=== PATIENT | male | born 1965 | race Caucasian/White ===

== ENCOUNTER 2021-09-21 04:15 | Emergency (ER) | payer OTHER, SELFPAY ==
[2021-09-21] VITALS (18 sets, daily range): BP systolic 140–165; BP diastolic 76–86; PULSE 71–76; RESP 18; TEMP 36.9; O2SAT 97–100
--- NOTE | ~2021-09-21 | CT_ITS ---
EXAMINATION: CT abdomen pelvis wo con DATE: 09/21/2021 05:04 INDICATION: Right flank pain. TECHNIQUE: Computed tomography (CT) of the abdomen and pelvis was performed without intravenous contr ast. Automated exposure control and iterative reconstruction technique were employed. The dose-length product was 1682.48 mGy-cm. COMPARISON: CT abdomen and pelvis 01/04/2013 FINDINGS: The visualized portions of the lung bases are clear without pneumonia or pleural effusion. The heart size is normal. There are coronary artery calcifications. No pericardial effusion. There is diffuse hepatic steatosis. The gallbladder, spleen, pancreas, and adrenal glands are normal. There a re 4 stones in right kidney measuring up to 3 mm. There is mild right hydronephrosis. There is a 7 mm stone in proximal right ureter. There are approximately 7 stones in left kidney measuring up to 6 mm . The prostate is mildly enlarged. There is diverticulosis of the colon without evidence of diverticu litis. The appendix is normal. There are no dilated loops of bowel. There are no pathologically enlar ged lymph nodes. There is no free intraperitoneal fluid. There are bridging endplate osteophytes at m ultiple levels in the spine, consistent with diffuse idiopathic skeletal hyperostosis (DISH). There i s mild chronic anterior wedging of T11-L1 vertebral bodies. IMPRESSION: 1. 7 mm stone in proximal right ureter with mild right hydronephrosis. 2. Bilateral nonobstructing kidney stones. Reviewed, dictated and finalized at location A.
--- NOTE | ~2021-09-21 | XR_ITS ---
EXAMINATION: XR abdomen/kub 1V DATE: 09/21/2021 07:23 INDICATION: Kidney stone. TECHNIQUE: A supine view of the abdomen on 2 radiographs was obtained. COMPARISON: CT abdomen and pelvis 09/21/2021 FINDINGS: There are no dilated loops of bowel. There is a 7 mm stone in proximal right ureter. There are stones in the kidneys. IMPRESSION: 1. 7 mm stone in proximal right ureter. 2. Bilateral kidney stones. Reviewed, dictated and finalized at location A.
--- NOTE | 2021-09-21 04:41 | ED.ABDPAIN ---
HPI - Abdominal Pain General Chief Complaint: Abdominal Pain Stated Complaint: ABD pain, R flank pain Time Seen by Provider: 09/21/21 04:18 History of Present Illness HPI narrative: 56-year-old male presenting to the emergency department for evaluation of right flank pain. Patient states symptoms started approximately 1130 last night. Patient describes right flank pain that is rating around to his lower abdomen. Patient does have associated nausea. Patient does have a prior history of kidney stones and did have a procedure by urology to have the stone removed, patient's urologist was Dr. Maldonado Patient did have a kidney stone approximately 9 years ago and does have history of bladder cancer for which she also was treated by Dr. Maldonado Related Data Allergies Allergy/AdvReac Type Severity Reaction Status Date / Time Penicillins Allergy Mild SWELLING ? Unverified 07/16/08 12:21 Review of Systems Review of Systems: CONSTITUTIONAL: Denies fever, chills, or sweats. EYES: Denies visual changes, redness, or discharge. ENT: Denies rhinorrhea, congestion, sore throat, or otalgia. CARDIOVASCULAR: Denies chest pain, palpitations, or edema. RESPIRATORY: Denies cough or dyspnea. GASTROINTESTINAL: See HPI GENITOURINARY: Right flank pain, denies hematuria SKIN: Denies rash or itching. MUSCULOSKELETAL: Denies back pain, joint pain, or myalgia. NEUROLOGIC: Denies headache, numbness, or weakness. Exam Narrative: APPEARANCE: Well appearing, no pain, no distress, well-nourished. HEAD: normocephalic, atraumatic. EYES: PERRLA/EOMI, conjunctivae clear. NOSE: Normal no drainage NECK: Supple. No adenopathy, no masses. RESPIRATORY: Airway patent, respirations nonlabored. Clear to auscultation bilaterally, no rales, rhonchi, wheezing. CARDIOVASCULAR: Regular rate and rhythm without murmurs rubs or gallops. ABDOMINAL: Soft, nontender, nondistended, normal bowel sounds. Lower abdominal tenderness to palpation. No CVA tenderness to palpation. MUSCULOSKELETAL: Moves all extremities. Strength/ROM intact, No edema, No calf tenderness. NEURO: Alert. Cranial nerves II through XII intact. Grossly intact SKIN: Warm, dry. Normal Color Course Course Emergency Course: Patient's urologist was consulted and he is coming down to see the patient to determine if he is going to send the patient home or if he is going to stent the patient today. Dr. Anderson evaluated the patient in the emergency department and will have outpatient follow-up with the patient to schedule a lithotripsy. Patient was provided Zofran and [place] for pain control. Vital Signs Vital signs: Vital Signs Pulse Oximetry 99 09/21/21 04:22 Temperature 98.4 F 09/21/21 04:23 Pulse Rate 71 09/21/21 06:47 Respiratory Rate 18 09/21/21 04:23 Blood Pressure 146/82 H 09/21/21 06:47 Pulse Oximetry 99 09/21/21 06:47 MDM - Abdominal Pain Lab Data Attestation: I reviewed the patient's lab results. Result diagrams: 09/21/21 05:39 09/21/21 04:52 Labs: Lab Results 09/21/21 09/21/21 09/21/21 Range/Units 04:52 05:39 05:42 WBC 10.4 H (4.5-10.0) K/mm3 RBC 4.78 (4.6-6.20) M/mm3 Hgb 15.2 (14.0-18.0) g/dL Hct 43.0 (42.0-52.0) % MCV 90.0 (80-100) fl MCH 31.8 (26-34) pg MCHC 35.3 (32-36) g/dl RDW 12.1 (11.5-14.5) % Plt Count 119 L (150-375) k/mm3 MPV 11.9 H (7.4-10.4) fl Immature Gran % (Auto) 0.6 H (0-0.5) % Neut % (Auto) 75.9 H (45.5-73.1) % Lymph % (Auto) 14.9 L (18.3-44.2) % Braxton % (Auto) 7.1 (2.6-8.5) % Eos % (Auto) 1.1 (0-4.4) % Baso % (Auto) 0.4 (0.2-1.2) % Lymph # (Auto) 1.55 (0.9-3.2) K/mm3 Braxton # (Auto) 0.7 H (0.1-0.6) K/mm3 Eos # (Auto) 0.1 (0-0.3) K/mm3 Baso # (Auto) 0.0 (0.0-0.1) K/mm3 Abs Immat Gran (auto) 0.06 H (0.00-0.031) K/mm3 Absolute Neuts (auto) 7.9 H (1.3-6.7) K/mm3 Absolute Nucleated RBC 0.0 (0.0-0.012) K/m
[2021-09-21 05:11] LABS: Alanine Aminotransferase 45 U/L (6-50); Albumin Level 4.4 g/dL (3.5-5.1); Alkaline Phosphatase 39 U/L (38-126); Anion Gap 6 mmol/L (8-16); Aspartate Amino Transferase 35 U/L (17-59); Bilirubin,Total 0.4 mg/dL (0.2-1.3); Blood Urea Nitrogen 15 mg/dL (9-20); Calcium 8.6 mg/dL (8.4-10.2); Carbon Dioxide 27 mmol/L (22-30); Chloride 104 mmol/L (98-107); Estimated Glomerular Filt Rate 57; Glucose 162 mg/dL (65-110); Potassium 4.2 mmol/L (3.4-5.0); Sodium 137 mmol/L (137-145)
[2021-09-21] MEDS: ONDANSETRON INJ 4 MG/2 ML VIAL IV PUSH (05:45)
[2021-09-21] MEDS: SODIUM CHLORIDE 0.9% IV 1,000 ML 999 ML IV CONT (05:46)
[2021-09-21] MEDS: HYDROmorphone HCL INJ (*CRX) 1 MG/ML SYR IV PUSH (05:46)
[2021-09-21 05:51] LABS: Basophils Percent Auto 0.4 % (0.2-1.2); Eosinophils Absolute Auto 0.1 K/mm3 (0-0.3); Eosinophils Percent Auto 1.1 % (0-4.4); Hemoglobin 15.2 g/dL (14.0-18.0); Immature Granulocyte Absolute 0.06 K/mm3 (0.00-0.031); Immature Granulocyte Percent A 0.6 % (0-0.5); Immature Platelet Fraction Pct 10.4 % (0.9-11.2); Lymphocytes Absolute Auto 1.55 K/mm3 (0.9-3.2); Lymphocytes Percent Auto 14.9 % (18.3-44.2); Mean Corpuscular HGB Conc 35.3 g/dl (32-36); Mean Corpuscular Hemoglobin 31.8 pg (26-34); Mean Platelet Volume 11.9 fl (7.4-10.4); Monocytes Absolute Auto 0.7 K/mm3 (0.1-0.6); Monocytes Percent Auto 7.1 % (2.6-8.5); Neutrophils Absolute Auto 7.9 K/mm3 (1.3-6.7); Neutrophils Percent Auto 75.9 % (45.5-73.1); Platelet Count Result 119 k/mm3 (150-375); Red Blood Count 4.78 M/mm3 (4.6-6.20); Red Cell Distribution Width 12.1 % (11.5-14.5); White Blood Count 10.4 K/mm3 (4.5-10.0)
[2021-09-21 05:54] LABS: Appearance Urine Clear (Clear); Bilirubin Urine Negative (Negative); Blood Urine 3+ (Negative); Color Urine Yellow (Yellow); Glucose Urine UA 1+ mg/dL (Negative); Ketones Urine Trace mg/dL (Negative); Leukocyte Esterase Ur Negative LEU/UL (Negative); Nitrate Urine Negative (Negative); Protein Urine 2+ mg/dL (Negative); Specific Grav Ur >= 1.030 (1.001-1.035); Urobilinogen Urine 0.2 mg/dL (<2.0); pH Urine 5.5 (5.0-9.0)
[2021-09-21 05:56] LABS: Mucus Urine Rare /lpf
[2021-09-21 05:57] LABS: Add Urine Microscopic? YES
--- NOTE | 2021-09-21 07:21 | WPDURCON ---
Assessment and Plan Assessment and plan (1) Calculi, ureter: Code(s): N20.1 - Calculus of ureter Status: Acute Assessment and Plan: Right ESWL Urology Consult Note HPI Date Seen: 09/21/21 Primary Care Provider: Kathya Cid, [employer] Consult Narrative Narrative: Lorenzo Blackwood is a 56 year old male, well known to me with a history of both urolithiasis and bladder cancer, presents to the ER with acute right flank pain. This is not associated nausea vomiting fevers chills or gross hematuria. Imaging demonstrates an obstructing 6 mm right proximal ureteral calculus. This plan has been the easily controlled. I discussed therapeutic options including ureteral stent placement followed by elective ESWL versus in Situ ESWL without stent placement. He has elected for the latter. He is aware the risk including, not limited to, adverse cardiopulmonary events, perinephric hematoma, febrile urinary tract infections and subsequent need for stent placement or additional urological procedures to clear residual stone fragments. Review of Systems Constitutional: Constitutional: Denies chills, Denies fatigue, Denies fever(s) and Denies headache(s) Eyes: Eyes: Denies blurry vision ENT: Denies vertigo, Denies dizziness, Denies headache(s) and Denies sore throat Cardiovascular: Cardiovascular: Denies chest pain, Denies syncope, Denies lightheadedness, Denies palpitations, Denies dyspnea and Denies dyspnea on exertion Respiratory: Respiratory: Denies hemoptysis, Denies dyspnea and Denies dyspnea on exertion Gastrointestinal: Gastrointestinal: Denies melena, Denies bloating, Denies hematochezia, Denies change in bowel habits, Denies change in stool character, Denies constipation, Denies diarrhea and Denies vomiting Genitourinary: Genitourinary: Denies hematuria, Denies dysuria, Denies testicular pain, Denies urinary frequency, Denies urinary hesitancy and Denies urinary urgency Integumentary/Breasts: Skin/Breast: Denies pruritus, Denies lesions and Denies rash Neurologic: Denies confusion, Denies vertigo, Denies dizziness, Denies syncope and Denies headache(s) Psychiatric: Psychiatric: Denies anxiety, Denies change in appetite and Denies confusion Endocrine: Endocrine: Denies fatigue and Denies palpitations Meds Home Medications and Allergies Home Medications Medication Instructions Recorded Confirmed Type hydrocodone 5 mg-acetaminophen 325 1 tablet PO Q6H PRN pain #14 tabs 09/21/21 Rx mg tablet ondansetron 4 mg disintegrating 4 mg PO Q8H PRN nausea and 09/21/21 Rx tablet vomiting #14 tabs Allergies Allergy/AdvReac Type Severity Reaction Status Date / Time Penicillins Allergy Mild SWELLING ? Unverified 07/16/08 12:21 Vital Signs Vital Signs - 24 hr 09/21/21 04:23 09/21/21 04:22 09/21/21 04:49 Temperature 98.4 F Pulse Rate 76 Respiratory Rate 18 Blood Pressure 165/85 H Pulse Oximetry 100 99 100 09/21/21 05:05 09/21/21 05:23 09/21/21 05:30 Temperature Pulse Rate Respiratory Rate Blood Pressure Pulse Oximetry 98 98 97 09/21/21 05:32 09/21/21 05:45 09/21/21 05:47 Temperature Pulse Rate 76 Respiratory Rate Blood Pressure 149/86 H 152/78 H Pulse Oximetry 99 99 99 09/21/21 06:00 09/21/21 06:15 09/21/21 06:17 Temperature Pulse Rate 74 Respiratory Rate Blood Pressure 140/82 Pulse Oximetry 100 99 98 09/21/21 06:30 09/21/21 06:45 09/21/21 06:47 Temperature Pulse Rate 71 Respiratory Rate Blood Pressure 146/82 H Pulse Oximetry 100 98 99 Exam Const: General: healthy appearing, comfortable, no acute distress and well developed; No confusion Nutritional Appearance: well nourished Orientation/consciousness: patient oriented x3 and No confusion HENMT: Head: normocephalic and atraumatic Ears: external ears normal Face and sinus: normal facial exam Mouth: Yes lip normal Teeth and gingiva: dentition normal Eyes:
== END 2021-09-21 07:40 | disposition home or self-care (01) ==
PROVIDERS: Emergency Provider Emergency Medicine; PCP Nurse Practitioner Adult Health
DX: N13.2 Hydronephrosis with renal and ureteral calculous obstruction (principal); Z87.442 Personal history of urinary calculi; Z85.51 Personal history of malignant neoplasm of bladder
CPT/HCPCS: 36415; 74018; 74176; 80053; 81001; 85025; 85055; 87086; 96361; 96374; 96375; 99284; J1170; J2405; J7030

== ENCOUNTER 2021-09-21 10:12 | Day surgery (SDC) | payer OTHER, SELFPAY ==
[2021-09-21] VITALS (10 sets, daily range): BP systolic 125–168; BP diastolic 52–99; PULSE 69–92; RESP 8–20; TEMP 36.4–36.6; O2SAT 95–100; BMI 40.5
--- NOTE | 2021-09-21 09:22 | PC.NURSE ---
Report to the Outpatient Waiting Room, entrance under the green pavilion located off [facility], at time __1100 on date __09/21/21 . OR Time: ___1300 . - You and your visitor will be asked a series of questions to screen for COVID 19 for your protection. - Only one visitor is allowed at this time. - The patient visitor is requested to leave or wait in car when not with patient. - A mask is required within the hospital. Patients may have clear liquids (water, carbonated beverages, clear teas, apple juice) until 3 hours prior to surgery (1000 AM) with a maximum of 20 ounces. - No food from midnight until time of surgery - Infants may have breast milk until 4 hours before surgery, infant formula 6 hours prior to surgery. - Children will be allowed to drink immediately following surgery. If applicable, please bring a bottle or sippy cup to assist with drinking. Juice, water, soda, and popsicles are readily available. For infants on formula, please bring formula the day of surgery. Pacifiers are allowed. Take the following medications with a SIP of water the morning of surgery: _PT STATES ALREADY TAKING AM MEDS__ Medications to discontinue per physician N/A Date to take last dose Please no make-up, nail new zealander, hairspray, perfume, deodorant, or body powder the day of surgery. No jewelry (including any body piercings) or valuables the day of surgery, leave them at home. Please take a shower or bath the night before, or the morning of, surgery with an antibacterial soap. Wear comfortable, loose fitting clothing. Children are encouraged to wear pajamas. - Jewelry must be removed prior to entering the operating room. Rings and piercings that are not removed may be cut off. - The hospital will not accept responsibility for valuables. - Please leave all valuables, including medications, at home the day of surgery. If you are going home after surgery, a licensed team truck driver must drive you home. - NO public transportation without another adult. - We recommend that an adult stay with you for 24 hours following discharge. - We also recommend that you do not drive, make important decision, drink alcoholic beverages, or take any drugs that were not prescribed by your health care provider for at least 24 hours after your discharge time. For Pediatric surgeries, we recommend two adults accompany the child home (only one inside the building at this time). Follow any additional instructions given to you from your surgeon. If you or anyone in your household have experienced Covid symptoms in the past week, please notify your surgeon or the nurse liaison at the phone number below for possible testing. Telephone instructions given to ____PT & SPOUSE and asked if any additional questions and then verbalized understanding. Patient advised to call surgeon office or pre surgery nurse liaison [phone] if any additional questions.
--- NOTE | 2021-09-21 10:15 | WPDHPUPDATE1 ---
History and Physical Update Update Date/Time: 09/21/21 10:15 History and Physical has been reviewed, including an updated exam of the patient. There are NO changes in the patient's condition. Risks, benefits, and alternatives have been discussed and questions answered. Patient agrees to proceed with procedure.
--- NOTE | 2021-09-21 11:22 | ECG_ITS ---
Measurements Intervals [place] Rate: 75 P: 34 GA: 158 QRS: 3 QRSD: 106 T: 31 QT: 377 QTc: 422 Interpretive Statements SINUS RHYTHM NO PREVIOUS ECG AVAILABLE FOR COMPARISON Electronically Signed On 09-21-2021 12:06:40 CDT by Khang Doty M.D.
[2021-09-21 11:27] LABS: Glucose Point of Care 126 mg/dl (65-105)
[2021-09-21 11:42] LABS: Prothrombin Time 12.4 Seconds (11.1-14.7)
[2021-09-21 11:43] LABS: Partial Thromboplastin Time 29.2 SECONDS (22.3-36.8)
--- NOTE | 2021-09-21 11:50 | WPDANESEPPF ---
Anes - Initial Pre Proc Eval Procedure: Operation Date: 09/21/21 13:00 Proposed Procedures p Right Ureteral Extracorporeal Shock Wave Lithotripsy - Osman Anderson MD Date/Time: 09/21/21 11:50 Surgeon: Osman Anderson MD Pre Op Diagnosis: right ureteral stone Patient Data Age: 56 Gender: M Height: 1.8 m Weight: 131.81 kg Allergies Allergy/AdvReac Type Severity Reaction Status Date / Time Penicillins Allergy Mild SWELLING ? Unverified 09/21/21 09:04 Home Medications Medication Instructions Recorded Confirmed Type hydrocodone 5 mg-acetaminophen 325 1 tablet PO Q6H PRN pain #14 tabs 09/21/21 09/21/21 Rx mg tablet lisinopril 10 mg tablet 1 tablet DAILY 09/21/21 09/21/21 History metformin 1,000 mg tablet 1 tablet BID 09/21/21 09/21/21 History ondansetron 4 mg disintegrating 4 mg PO Q8H PRN nausea and 09/21/21 09/21/21 Rx tablet vomiting #14 tabs rosuvastatin 10 mg tablet 1 tablet HS 09/21/21 09/21/21 History semaglutide 1 mg/dose (4 mg/3 mL) 1 ea subcut WEEKLY 09/21/21 09/21/21 History subcutaneous pen injector (Ozempic) sitagliptin 100 mg tablet (Januvia) 1 tablet QAM 09/21/21 09/21/21 History Laboratory Tests 09/21/21 09/21/21 11:09 11:24 PT 12.4 Seconds Seconds (11.1-14.7) INR 1.0 APTT 29.2 SECONDS SECONDS (22.3-36.8) POC Capillary Glucose 126 mg/dl H mg/dl (65-105) Patient hx anesthesia problems: none Family hx anesthesia problems: none Results Review: All pre-operative results and documents have been reviewed as part of the pre-operative evaluation. [facility] Past Medical History Medical History (Updated 09/21/21 @ 11:51 by Rajesh Sanchez DO) Bladder cancer Diabetes type 2, controlled Hyperlipidemia Hypertension GREGORIA (obstructive sleep apnea) Social History Social History Smoking status: Never smoker Second hand tobacco smoke exposure: No Alcohol intake: current Drinks per week: 21 Substance use: never Substance use type: does not use Living arrangements: with family Spiritual care concerns: No Anes - Eval Final PreProcedure Day of Procedure 09/21/21 11:50 Patient weight: morbidly obese Heart: regular rate and rhythm Lungs: clear to auscultation Airway: Mallampati scale class 1 Neurological: alert and oriented Last oral intake: >/= 8 hours ASA classification: III Emergent: no Anesthetic plan: proceed Anesthesia type and monitoring: general LMA and standard monitoring Results Review: All pre-operative results and documents have been reviewed as part of the pre-operative evaluation. Informed Consent: The patient's anesthetic plan and its attendant risks and benefits were discussed with the patient/family/POA. Questions were solicited and answers provided to the satisfaction of the patient/family/POA.
[2021-09-21] MEDS: LACTATED RINGERS 1,000 ML 30 ML IV CONT ×2 (12:00→14:02)
[2021-09-21] MEDS: ceFAZolin 3 GM/D5W 100 ML 100 ML IVPB (12:48)
--- NOTE | 2021-09-21 13:01 | W.PM.PROC2 ---
Procedure Note - Detailed Date of Procedure 09/21/21 Pre-op Diagnosis Right ureteral stone Post-op Diagnosis Same Procedure Performed Right ESWL Surgeon Osman Anderson MD Description of Procedure The patient was brought to the operative suite where he was placed in the supine position on the Dornier lithotripsy table. The focal point of the lithotripter was placed at a 7mm right mid-uretera calculus. A total of 3000 shocks were delivered at a power setting of 6. There appeared to be good fragmentation of the stone. The patient tolerated the procedure well and was taken to the recovery room in good condition. Pathology None sent Complications No immediate complications Condition Stable Disposition PACU
[2021-09-21 13:46] LABS: Glucose Point of Care 114 mg/dl (65-105)
[2021-09-21] MEDS: fentaNYL CITRATE INJ (*CRX) 100 MCG/2 ML VIAL 25 MCG IV PUSH (14:17)
== END 2021-09-21 15:22 | disposition home or self-care (01) ==
PROVIDERS: PCP Nurse Practitioner Adult Health; Visit Provider Urology
PROC: (CPT 50590; principal; 2021-09-21 13:00)
DX: N20.1 Calculus of ureter (principal); E11.9 Type 2 diabetes mellitus without complications; E78.5 Hyperlipidemia, unspecified; I10 Essential (primary) hypertension; G47.33 Obstructive sleep apnea (adult) (pediatric); Z85.51 Personal history of malignant neoplasm of bladder; E66.01 Morbid (severe) obesity due to excess calories; Z68.41 Body mass index [BMI] 40.0-44.9, adult; Z79.84 Long term (current) use of oral hypoglycemic drugs; Z79.899 Other long term (current) drug therapy
CPT/HCPCS: 50590; 36415; 74018; 74176; 80053; 81001; 82948; 85025; 85055; 85610; 85730; 87086; 93005; 96361; 96374; 96375; 99284; J0690; J1100; J1170; J2405; J2704; J3010; J7030; J7120

== ENCOUNTER 2021-10-06 10:49 | Outpatient (CLI) | payer OTHER, SELFPAY ==
--- NOTE | ~2021-10-06 | XR_ITS ---
EXAMINATION: XR abdomen/kub 1V INDICATION: Right kidney stone TECHNIQUE: Supine views of the abdomen were obtained on 2 radiographs. COMPARISON: 09/21/2021 FINDINGS: A 7 mm stone at the distal right ureter previously projected in the proximal ureter. Left n ephrolithiasis is noted. The bowel gas pattern is normal. There is mild osteoarthritis of the hips. IMPRESSION: 1. 7 mm stone at the distal right ureter, previously in the proximal ureter. 2. Left nephrolithiasis. Reviewed, dictated and finalized at location B.
== END 2021-10-06 10:50 | disposition home or self-care (01) ==
PROVIDERS: PCP Nurse Practitioner Adult Health; Visit Provider Urology
DX: N20.2 Calculus of kidney with calculus of ureter (principal)
CPT/HCPCS: 74018

== ENCOUNTER 2021-10-15 11:20 | Outpatient (CLI) | payer OTHER, SELFPAY ==
--- NOTE | ~2021-10-15 | XR_ITS ---
EXAMINATION: XR abdomen/kub 1V DATE: 10/15/2021 11:40 INDICATION: Calculus of ureter TECHNIQUE: A supine view of the abdomen on 2 radiographs was obtained. COMPARISON: 10/06/2021 FINDINGS: A couple unchanged 10 mm and 6 mm stones projecting over the lower pole of the left kidney. No change in position of a more subtle approximately 7 mm stone in the distal right ureter projecting between the dome of the bladder and the lateral margin of the right sacral ala. Normal bowel gas pattern incl uding a gas filled appendix in the right lower quadrant. IMPRESSION: 1. Unchanged nephrolithiasis including 7 mm stone at the distal right ureter. Reviewed, dictated and finalized at location B.
--- NOTE | ~2021-10-15 | CT_ITS ---
EXAMINATION: CT abdomen pelvis wo con DATE: 10/15/2021 11:59 INDICATION: Calculus of ureter. TECHNIQUE: Computed tomography (CT) of the abdomen and pelvis was performed without intravenous contr ast. Automated exposure control and iterative reconstruction technique were employed. The dose-length product was 924.24 mGy-cm. COMPARISON: CT abdomen and pelvis 09/21/2021 FINDINGS: The visualized portions of the lung bases demonstrate mild atelectasis. No pleural effusion . The heart size is normal. No pericardial effusion. There is diffuse hepatic steatosis. The gallblad hawa, spleen, pancreas, and adrenal glands are normal. There are 3 mm and 2 mm stones in right kidney. There are approximately 6 stones in left kidney measuring up to 10 mm. There is a 7 mm stone in dist al right ureter. There are no dilated loops of bowel. The appendix is normal. There are no pathologic ally enlarged lymph nodes. There is no free intraperitoneal fluid. There is mild lumbar spondylosis. There are bridging endplate osteophytes at multiple levels in the spine, consistent with diffuse idio pathic skeletal hyperostosis (DISH). There is mild chronic anterior wedging of T11-L1 vertebral filippo s. IMPRESSION: 1. 7 mm stone in distal right ureter. No hydronephrosis. 2. Bilateral nonobstructing kidney stones. Reviewed, dictated and finalized at location A.
== END 2021-10-15 11:21 | disposition home or self-care (01) ==
PROVIDERS: PCP Nurse Practitioner Adult Health; Visit Provider Urology
DX: N20.2 Calculus of kidney with calculus of ureter (principal)
CPT/HCPCS: 74018; 74176

== ENCOUNTER 2021-10-19 00:12 | Day surgery (SDC) | payer OTHER, SELFPAY ==
[2021-10-18 08:35] VITALS: BMI 41.2
--- NOTE | 2021-10-18 08:40 | PC.NURSE ---
Report to the Outpatient Waiting Room, entrance under the green pavilion located off [facility], at time 0630 on date 10/19/21. OR Time: 0830. - You and your visitor will be asked a series of questions to screen for COVID 19 for your protection. - Only one visitor is allowed at this time. - The patient visitor is requested to leave or wait in car when not with patient. - A mask is required within the hospital. Patients may have clear liquids (water, carbonated beverages, clear teas, apple juice) until 3 hours prior to surgery with a maximum of 20 ounces. - No food from midnight until time of surgery Take the following medications with a SIP of water the morning of surgery: NONE Medications to discontinue per physician: N/A Date to take last dose: N/A Please no make-up, nail [place] islander, hairspray, perfume, deodorant, or body powder the day of surgery. No jewelry (including any body piercings) or valuables the day of surgery, leave them at home. Please take a shower or bath the night before, or the morning of, surgery with an antibacterial soap. Wear comfortable, loose fitting clothing. - Jewelry must be removed prior to entering the operating room. Rings and piercings that are not removed may be cut off. - The hospital will not accept responsibility for valuables. - Please leave all valuables, including medications, at home the day of surgery. If you are going home after surgery, a licensed intermodal owner operator truck driver must drive you home. - NO public transportation without another adult. - We recommend that an adult stay with you for 24 hours following discharge. - We also recommend that you do not drive, make important decision, drink alcoholic beverages, or take any drugs that were not prescribed by your health care provider for at least 24 hours after your discharge time. Follow any additional instructions given to you from your surgeon. If you or anyone in your household have experienced Covid symptoms in the past week, please notify your surgeon or the nurse liaison at the phone number below for possible testing. Telephone instructions given to PT - ROBINA WORRELL and asked if any additional questions and then verbalized understanding. Patient advised to call surgeon office or pre surgery nurse liaison [phone] if any additional questions.
--- NOTE | 2021-10-18 14:36 | P.PNAN_ITS ---
Anes - Initial Pre Proc Eval Procedure: Operation Date: 10/19/21 08:30 Proposed Procedures p Cystoscopy, Right Ureteroscopy, Right Retrograde Pyelogram, Right Stone Extraction, Right Stent Placement, Possible Holmium Laser Lithotripsy - Hany Saavedra MD Date/Time: 10/18/21 14:36 Surgeon: Hany Saavedra MD Pre Op Diagnosis: right ureteral calculus Patient Data Age: 56 Gender: M Height: 1.8 m Weight: 134 kg Allergies Allergy/AdvReac Type Severity Reaction Status Date / Time Penicillins Allergy Mild SWELLING ? Verified 10/19/21 07:42 ciprofloxacin AdvReac Unknown Diarrhea Verified 10/19/21 07:42 Home Medications Medication Instructions Recorded Confirmed Type lisinopril 10 mg tablet 1 tablet DAILY 09/21/21 10/18/21 History metformin 1,000 mg tablet 1 tablet BID 09/21/21 10/18/21 History rosuvastatin 10 mg tablet 1 tablet HS 09/21/21 10/18/21 History semaglutide 1 mg/dose (4 mg/3 mL) 1 ea subcut WEEKLY 09/21/21 10/18/21 History subcutaneous pen injector (Ozempic) sitagliptin 100 mg tablet (Januvia) 1 tablet QAM 09/21/21 10/18/21 History Patient hx anesthesia problems: none Family hx anesthesia problems: none Results Review: All pre-operative results and documents have been reviewed as part of the pre- operative evaluation. [facility] Past Medical History Medical History (Updated 09/22/21 @ 00:00 by Background Luc) Bladder cancer Diabetes type 2, controlled Hyperlipidemia Hypertension GREGORIA (obstructive sleep apnea) Social History Social History Smoking status: Never smoker Second hand tobacco smoke exposure: No Alcohol intake: current Drinks per week: 21 Substance use: never Substance use type: does not use Living arrangements: with family Spiritual care concerns: No Anes - Eval Final PreProcedure Day of Procedure 10/18/21 14:36 Patient weight: morbidly obese Heart: regular rate and rhythm Lungs: clear to auscultation Airway: Mallampati scale class 1 Neurological: alert and oriented Last oral intake: >/= 8 hours ASA classification: III Emergent: no Anesthetic plan: proceed Anesthesia type and monitoring: general LMA and standard monitoring Results Review: All pre-operative results and documents have been reviewed as part of the pre- operative evaluation. Informed Consent: The patient's anesthetic plan and its attendant risks and benefits were discussed with the patient/family/POA. Questions were solicited and answers provided to the satisfaction of the patient/family/POA.
[2021-10-19] VITALS (7 sets, daily range): BP systolic 147–174; BP diastolic 81–98; PULSE 65–88; RESP 12–16; TEMP 36.3–37.3; O2SAT 97–100
--- NOTE | ~2021-10-19 | XR_ITS ---
EXAMINATION: XR retrograde pyelo w/stent RT DATE: 10/19/2021 09:45 INDICATION: Right internal ureteral stent placement TECHNIQUE: Fluoroscopic images from a right internal ureteral stent placement are submitted for rajni ew. 14 seconds of fluoroscopy time. FINDINGS: There is a right double-J internal ureteral stent projecting in expected position, with proximal Kittrell loop at the level of the renal pelvis and distal loop in the pelvis within the bladder lumen. IMPRESSION: 1. Right internal ureteral stent placement. Please refer to real-time procedural findings for detai ls. Reviewed, dictated and finalized at location A. IMPRESSION: 1. Right internal ureteral stent placement. Please refer to real-time procedu ral findings for details.
--- NOTE | 2021-10-19 07:25 | WPDHPUPDATE1 ---
History and Physical Update Update Date/Time: 10/19/21 07:25 History and Physical has been reviewed, including an updated exam of the patient. There are NO changes in the patient's condition. Risks, benefits, and alternatives have been discussed and questions answered. Patient agrees to proceed with procedure. Proceed with cysto, right ureteroscopy with stone extraction, laser , right retrograde, right stent placement.
[2021-10-19 07:36] LABS: Glucose Point of Care 128 mg/dl (65-105)
[2021-10-19] MEDS: LACTATED RINGERS 1,000 ML 30 ML IV CONT ×3 (07:40→09:49)
[2021-10-19] MEDS: ceFAZolin 3 GM/D5W 100 ML 100 ML IVPB (09:02)
[2021-10-19] MEDS: LIDOCAINE HCL 2% GEL UROJET 10 ML PKG MUCOUS MEM (09:20)
--- NOTE | 2021-10-19 09:45 | W.PM.PROC2 ---
Procedure Note - Detailed Date of Procedure 10/19/21 Pre-op Diagnosis right ureteral calculus- 7mm Post-op Diagnosis Same Procedure Performed Cystoscopy, right retrograde pyelogram, right ureteroscopy with holmium laser, stone extraction, right ureteral stent placement 4.8 Qatari contour Surgeon Hany Saavedra MD Anesthesia General Description of Procedure Patient is taken to the operative suite and correctly identified. Once anesthesia was obtained he was placed in the dorsal lithotomy position and prepped and draped usual sterile fashion. Twenty-two Qatari scope was inserted into the bladder. There were no tumors noted. The right ureteral orifice was cannulated with a Glidewire. We dilated the orifice using an 8/10 dilator. Rigid ureteral scope was inserted. The stone was too large to retrieve 1 piece. Using a 272 micron fiber we lasered the stone into multiple small pieces. These were retrieved and sent for analysis. Reinspection revealed no residual stone. Pyelogram was then performed confirm placement of the stent. A 4.8 Qatari contour stent was then placed with the proximal end coiled in the renal pelvis and the distal end in the bladder. Bladder was drained. 2% viscous lidocaine was inserted into the urethra patient is taken recovery room stable condition. He will follow up in a week's time for cysto with stent removal in the office. He is to call for that appointment Drains Yes Packing No Pathology Yes Complications No immediate complications Condition Stable Disposition PACU
[2021-10-19 10:04] LABS: Glucose Point of Care 122 mg/dl (65-105)
== END 2021-10-19 11:09 | disposition home or self-care (01) ==
PROVIDERS: PCP Nurse Practitioner Adult Health; Visit Provider Urology
PROC: (CPT 52352; principal; 2021-10-19 08:30)
DX: N20.1 Calculus of ureter (principal); Z79.84 Long term (current) use of oral hypoglycemic drugs; E11.9 Type 2 diabetes mellitus without complications; G47.33 Obstructive sleep apnea (adult) (pediatric); I10 Essential (primary) hypertension; E78.5 Hyperlipidemia, unspecified; E66.01 Morbid (severe) obesity due to excess calories; Z68.41 Body mass index [BMI] 40.0-44.9, adult; Z85.51 Personal history of malignant neoplasm of bladder
CPT/HCPCS: 52356; 74420; 82365; 82948; 88300; C1769; C2617; J0690; J1100; J1885; J2250; J2405; J2704; J3010; J7120; Q9966

== ENCOUNTER 2024-12-26 07:54 | Outpatient (CLI) | payer BC, SELFPAY ==
--- NOTE | ~2024-12-26 | XR_ITS ---
Abdominal radiograph(s) INDICATION: Right-sided abdominal pain COMPARISON: CT abdomen and pelvis 10/15/2021 TECHNIQUE: 2 views supine AP abdomen FINDINGS: Lung bases clear. Scattered colonic gas and stool. Small bowel gas left upper quadrant. Mildly distended loops. Air-fluid levels cannot be assessed on supine projection. No evidence of organomegaly. Left-sided renal stones. No ureteral calculi identified. No acute bony abnormality. IMPRESSION: 1. Left-sided renal stones. 2. No other abnormality identified. Reviewed, dictated and finalized at location R.
--- OUTSIDE RECORDS SUMMARY | 2024-12-26 08:01 | XMS_ITS | Encounter Summary ---
Author Organization [facility] Healthcare Address [address] [place] [address] Care Team Providers Care Body Hanger Name Role Phone No, Physician Unavailable Malcolm Rollins MD Primary Care Provider [phone] Encounter Details Date Type Department Care Team (Late st Contact Info) Description 05/23/2022 Telephone [facility] Nutrition and Diabetic Education [address] [place] [id number] Addie Sinclair, RN Social History Tobacco Use Types Packs/Day Years Used Date Smoking Tobacco: Never AUDIT-C Answer Date Recorded Q1: How often do you have a drink containing alcohol? 4 or more times a week 05/11/2022 Q2: How many drinks containi ng alcohol do you have on a typical day when you are drinking? 1 or 2 Q3: How often do you have si x or more drinks on one occasion? 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
--- OUTSIDE RECORDS SUMMARY | 2024-12-26 08:01 | XMS_ITS | Clinical Summary ---
Author Organization [facility] Address [address] [place] [address] Phone Care Team Providers Care Nanoelectronics Engineer Name Role Phone Oanh Cleary MD Primary Care Provider [phone] Allergies Active Allergy Reactions Criticality Noted Date Comments Penicillin G Swelling 04/13/2019 Medications metFORMIN (GLUCOPHAGE-XR) 500 MG TABLET SR 24 HR Take 500 mg by mouth daily. This RX is for Metformin SR. Active rosuvastatin (CRESTOR) 10 MG Tablet Take by mouth daily. Active SITagliptin Phosphate (JANUVIA PO) Take by mouth. Ac tive lisinopril (PRINIVIL, ZESTRIL) 10 MG Tablet Take 10 mg by mouth daily. Active HYDROcodone-kimberly taminophen (NORCO) 5-325 MG Tablet Take 1-2 Tabs by mouth every 6 hours as needed for Moderate or more severe pain. 15 Tab 0 Active triamcinolone (KENALOG) 0.1 % Cream triamcinolone acetonide 0.1 % topical cream APPLY A THIN LAYER TO THE AFFECTED AREA(S) BY TOPICAL ROUTE 2 TIMES PER DAY Active Lorcaserin HCl (BELVIQ) 10 MG Tablet Belviq 10 mg tablet Take 1 tablet twice a day by oral route. Active fluticasone (FLONASE) 50 MCG/ACT Suspension fluticasone propionate 50 mcg/actuation nasal spray,suspension Inhale 2 sprays every day by intranasal route in the morning for 30 days. Active chlorhexidine (PERIDEX) 0.12 % Solution chlorhexidine gluconate 0.12 % mouthwash Active benzonatate (TESSALON) 100 MG Capsule benzonatate 100 mg capsule Active aspirin EC (EQ ASPIRIN ADULT LOW DOSE) 81 MG Tablet Delayed Response Adult Low Dose Aspirin 81 mg tablet,delayed release Take 1 tablet every day by oral route after meals for 90 days. Active Glucose Blood (ONETOUCH ULTRA BLUE ) OneTouch Ultra Test strips Test once daily. Active SITagliptin (JANUVIA) 100 MG Tablet Take 100 mg by mouth daily. Active ciprofloxacin (CILOXAN) 0.3 % SolutionIndicat ions:Non-recurr ent acute suppurative otitis media of left ear with spontaneous rupture of tympanic membrane 4gtt BID (give on QID schedule alternating with dexamethasone) 10 mL 1 0 Active dexamethasone (DECADRON) 0.1 % SolutionIndicat ions:Non-recurr ent acute suppurative otitis media of left ear with spontaneous rupture of tympanic membrane 4gtt BID (give on QID schedule alternating with Ciloxan gtts) 10 mL 1 0 Active Social History Tobacco Use Types Packs/Day Years Used Date Smoking Tobacco: Never Smokeless Tobacco: Never Alcohol Use Standard Drinks/Week Comments Yes 4 (1 standard drink = 0.6 oz pur e alcohol) case a week Sex and Gender Information Value Date Recorded Sex Assigned at Not on file Legal Sex Male 8:40 PM TRIP FOLLOWER Gender Identity Not on file Sexual Orientation Not on file Last Filed Vital Signs Vital Sign Reading Time Taken Comments Blood Pressure 154/96 04/16/2019 1:49 PM TRIP FOLLOWER Pulse 73 04/16/2019 1:49 PM TRIP FOLLOWER Temperature 36.9 C (98.4 F) 04/16/2019 1:49 PM TRIP FOLLOWER Respiratory Rate 24 04/16/2019 1:49 PM TRIP FOLLOWER Oxygen Saturation 93% 04/16/2019 1:49 PM TRIP FOLLOWER Inhaled Oxygen Concentration - - Weight 140.6 kg (310 lb) 04/16/2019 1:49 PM TRIP FOLLOWER Height 180.3 cm (5' 11) 04/16/2019 1:49 PM TRIP FOLLOWER Body Mass Index 43.24 04/16/2019 1:49 PM TRIP FOLLOWER Plan of Treatment Health Maintenance Due Date Last Done Comments Hepatitis C Virus (HCV) Screening 1966 Hepatitis B Immunization (1 of 3 - 19+ 3-dose series) 1985 Cologuard 2011 Colonoscopy 2011 Colorectal Cancer Screening 2011 Immunochemical Fecal Occult Blood 2011 Pneumococcal Immunization (50+ years) (1 of 1 - PCV) 2016 Zoster Immunization (1 of 2) 2016 Influenza Immunization (#1) 2024 12/0 05/2018, 01/02/2019, 01/02/2018, Additional history exists SARS-COV-2 Immunization ( season) 2024 02/26/2021, 08/15/2020, 07/24/2020 Respiratory Syncytial Virus (RSV) Immunization (Adult) (1 - 1-dose 75+ series) 2041 DTaP/Tdap/Td Immunization Discontinued 02/11/2014 TdaP Immunization Completed 02/11/2014 Human Papillomavirus (HPV) Immunization Aged Out No longer eligible based on patient's age to complete this topic Meningococcal Immunization (ACWY) Aged Out No longer eligible based on patient's age to complete this topic Rotavirus Immunization Aged Out No lo nger eligible based on patient's age to complete this topic Insurance Scratch Hard Care Teams Nanoelectronics Engineer Relationship Specialty Start Date End Date Oanh Cleary MD [address] [place] [address] [place] [address] PCP - General Elevator Service Mechanic 04/16/19
--- OUTSIDE RECORDS SUMMARY | 2024-12-26 08:01 | XMS_ITS | Clinical Summary ---
Author Organization [facility] Address [address] [place] [address] Phone Care Team Providers Care Hardware Test Engineer Name Role Phone No, Physician Unavailable Allergies Active Allergy Reactions Criticality Noted Date Comments Penicillins Other (See comments),Swelling High 11/14 Venom-Honey Bee Anaphylaxis,Itching,Chest tightness High 12/05/2023 Medications fluticasone propionate (FLONASE) 50 mcg/actuation nasal spray Administer 2 sprays into each nostril daily 3 each 3 3 Active blood glucose diagnostic (glucose blood) strip Use to check blood sugar daily Dx: E11.9 100 each 11 4 Active lancets misc Use to check blood sugar daily. Dx: E11.9 100 each 11 4 Active metFORMIN (GLUCOPHAGE) 1,000 mg tablet Take 1 tablet (1,000 mg total) by mouth 2 (two) times a day 240 tablet 3 4 Active EPINEPHrine 0.3 mg/0.3 mL auto-injection syringeIndicat ions:Anaphylax is Inject 0.3 mL (0.3 mg total) into the muscle as instructed as needed for anaphylaxis Call 911 after use. 2 each 2 4 Active semaglutide (Ozempic) 2 mg/dose (8 mg/3 mL) pen injector injection INJECT 2MG SUBCUTANEOUSLY ONCE A WEEK 9 mL 5 Active glimepiride (AMARYL) 1 mg tablet TAKE 1 TABLET BY MOUTH ONCE DAILY BEFORE BREAKFAST 30 tablet 5 Active lisinopriL (PRINIVIL,ZEST RIL) 10 mg tablet Take 1 tablet by mouth once daily 90 tablet 5 Active rosuvastatin (CRESTOR) 20 mg tablet Take 1 tablet by mouth once daily 90 tablet 5 Active Hospital, Clinic, or Other Facility Administered Medication Ordered Dose Route Frequency Start Date End Date Status albuterol 2.5 mg /3 mL (0.083 %) nebulizer solution 2.5 mgIndications:Wheezin g 2.5 mg nebu 4 times daily (correspondence review clerk) 12/06/2023 Active Active Problems Problem Noted Date Diagnosed Date Elevated LFTs 05/30/2023 Assessment & Plan (05/30/2023 8:05 AM GEOGRAPHICAL HISTORIAN): Mild elevated. Avoid alcohol and Tylenol. Really work on weight loss. Will recheck upon return. If continues to be elevated will investigate further. Screening for prostate cancer 05/30/2023 Assessment & Plan (05/30/2023 8:04 AM GEOGRAPHICAL HISTORIAN): Stable. Will continue to monitor. Type 2 diabetes mellitus wit h hyperglycemia, without long-term current use of insulin 05/30/2023 Assessment & Plan (11/29/2023 8:10 AM CDT): Improving. Very near goal. Discussed uptitrate and glimepiride. He prefers to continue working on dietary changes. Believes he can get to goal if he watches what he eats. Will recheck A1c in 6 months. If not at goal will uptitrate glimepiride. He is in agreement with plan and states understanding. Assessment & Plan (05/30/2023 8:25 AM GEOGRAPHICAL HISTORIAN): A1c going in the wrong direction. Up to 7.9% from 7.1%. Resistant to initiating insulin. Will continue metformin and Ozempic. Will add glimepiride for now and place referral to Endocrinology. Again highly encouraged dietary changes which were reviewed today. He is agreeable with plan states understanding. Type 2 diabetes mellitus with hyperlipidemia 11/2022 Assessment & Plan (05/30/2023 8:24 AM GEOGRAPHICAL HISTORIAN): LDL 69. Continue with rosuvastatin. Will also continue to monitor LFTs. Reviewed lifestyle recommendations. Cut back on alcohol. Hyperlipidemia associated with type 2 diabetes minh sprague 05/11/2022 Assessment & Plan (11/29/2023 8:17 AM CDT): Lipid panel reviewed. Continue rosuvastatin. Again reviewed lifestyle recommendations. Will continue to monitor. Hypertension associated with diabetes 05/11/2022 Assessment & Plan (11/29/2023 8:08 AM CDT): Stable on lisinopril. Reviewed lifestyle recommendations. Will continue to monitor. Assessment & Plan (05/30/2023 8:24 AM GEOGRAPHICAL HISTORIAN): Normotensive. Continue lisinopril. Will continue to monitor. History of bladder cancer 05/11/2022 History of kidney stones 05/11/2022 Chest pain 11/14/2017 Obesity 11/14/2017 Assessment & Plan (05/30/2023 8:25 AM GEOGRAPHICAL HISTORIAN): Reviewed lifestyle recommendations. Shortness of breath 11/14/2017 Sleep apnea, unspecified 11/14/2017 Immunizations Immunization Administration Dates Next Due Influenza, Quadrivalent, Gina l Culture-based MDCK, Preservative Free, Antibiotic Free, Intramuscular 12/30/2019 Influenza, Quadrivalent, Spl it, Intramuscular 01/12/2021,01/15/2020,03/04/2019,01/02 Influenza, Quadrivalent, Spl it, Preservative Free, Intramuscular 01/28/2023,02/28/2022,12/26/2020,01/02,12/31/2017 Influenza, Trivalent, High D ose, Split, Preservative Free, Intramuscular 12/05/2013 Influenza, Trivalent, IM (MDV) 12/18/2016,2015,12/05/2013 Influenza, Trivalent, Preser vative Free, Intramuscular 12/13/2015,12/14/2014 Moderna SARS-CoV-2 Monovalen t Vaccination (12+ YRS) 08/26/2020,08/05/2020 Pneumococcal Polysaccharide PPV23 01/12/2021, Tdap 02/11/2014 Surgical History Surgery Date Site/Laterality Comments QUADRICEPS TENDON REPAIR 2005 ROTATOR CUFF REPAIR 2007 BLADDER SURGERY 2007 Medical History Medical History Date Comments Diabetes mellitus Hypertension Hyperlipidemia History of bladder cancer Kidney stones 2021, 10/20 22 Family History Medical History Relation Name Comments Hypertension Brother Diabetes Father Steven Heart disease Father Steven Hypertension Father Steven Breast cancer Mother Tiffanie Diabetes Mother Tiffanie Heart disease Mother Tiffanie Hypertension Mother Tiffanie Heart disease Sister 1 Steven Hypertension Sister 1 Steven Hypertension Sister 2 Thyroid disease Sister 2 Relation Name Status Comments Brother Alive Father Steven Alive Mother Tiffanie Alive Sister 1 Steven Alive Sister 2 Alive Social History Tobacco Use Types Packs/Day Years Used Date Smoking Tobacco: Never Cigarettes Tobacco Cessation:Counseling Given: Not Answered AUDIT-C Answer Date Recorded Q1: How often do you have a drink containing alcohol? 4 or more times a week 05/30/2023 Q2: How many drinks containi ng alcohol do you have on a typical day when you are drinking? 3 or 4 Q3: How often do you have si x or more drinks on one occasion? Monthly 05/30/2023 PHQ-2 Answer Date Recorded PHQ-2 Total Score (If total score is 3 or more points, staff should administer the PHQ-9) 0 11/29/2023 Personal Safety Answer Date Recorded Have you ever been in or are you currently in a harmful physical or emotional relationship or is someone making you feel afraid or unsafe? Denies 12/05/2023 Sex and Gender Information Value Date Recorded Sex Assigned at Not on file Legal Sex Male 3:54 AM GEOGRAPHICAL HISTORIAN Gender Identity Not on file Sexual Orientation Not on file Obstetrics History Last Filed Vital Signs Vital Sign Reading Time Taken Comments Blood Pressure 128/74 12/05/2023 6:15 PM CDT Pulse 106 12/05/2023 6:15 PM CDT Temperature 37.1 C (98.7 F) 12/05/2023 4:22 PM CDT Respiratory Rate 15 12/05/2023 6:15 PM CDT Oxygen Saturation 96% 12/05/2023 6:15 PM CDT Inhaled Oxygen Concentration - - Weight 133.8 kg (295 lb) 12/05/2023 4:22 PM CDT Height 180.3 cm (5' 11) 12/05/2023 4:22 PM CDT Body Mass Index 41.14 12/05/2023 4:22 PM CDT Plan of Treatment Health Maintenance Due Date Last Done Comments Hepatitis C Screening 1966 Hepatitis B Screening 1984 Zoster Vaccine (1 of 2) 2016 Pneumococcal vaccine <65 (2 of 2 - PCV) 01/12/2022 01/12/2021, 12/26/2020 Regular Well Visit/Exam 18-64 11/24/2023 11/23/2022 Dilated Eye Exam 11/29/2023 12/08/2022, 06/12/2021 DTaP/Tdap/Td Vaccine (2 - Td or Tdap) 02/12/2024 02/11/2014 Hemoglobin A1C 05/25/2024 11/23/2023, 05/05, 11/21/2022, Additional history exists Albumin Creatinine Ratio, Urine 05/26/2024 , 05/24/2022 Foot Exam 05/30/2024 05/30/2023, 05/11/2022 Lipid Panel 11/22/2024 11/23/2023, 05/05, 11/21/2022, Additional history exists eGFR 11/22/2024 11/23/2023, 05/05, 11/21/2022, Additional history exists Depression Screening 11/28/2024 11/29/2023, 11/23/2022, 05/11/2022 Covid-19 Vaccine (6 - 2024-2 6 season) 2024 02/26/2021, 08/26/2020, 08/15/2020, Additional history exists Influenza Vaccine (#1) 2024 , 02/28/2022, 01/12/2021, Additional history exists Prostate Cancer Screening-PSA 05/26/2025 05/26/2023, 05/24/2022 Colon Cancer Screening-Colonoscopy 01/24/20282022 Procedures Procedure Name Priority Date/Time Associated Diagnosis Comments EGFR Routine 11/23/2023 2:55 PM CDT Type 2 diabetes mellitus with hyperlipidemia (HCC) Class 3 severe obesity due to excess calories with body mass index (BMI) of 40.0 to 44.9 in adult, unspecified whether serious comorbidity present (HCC) Hypertension associated with diabetes (HCC) Screening for prostate cancer Elevated LFTs Type 2 diabetes mellitus with hyperglycemia, without long-term current use of insulin (HCC) HEMOGLOBIN A1C Routine 11/23/2023 2:55 PM CDT Type 2 diabetes mellitus with hyperlipidemia (HCC) Class 3 severe obesity due to excess calories with body mass index (BMI) of 40.0 to 44.9 in adult, unspecified whether serious comorbidity present (HCC) Hypertension associated with diabetes (HCC) Screening for prostate cancer Elevated LFTs Type 2 diabetes mellitus with hyperglycemia, without long-term current use of insulin (HCC) LIPID PANEL Routine 11/23/2023 2:55 PM CDT Type 2 diabetes mellitus with hyperlipidemia (HCC) Class 3 severe obesity due to excess calories with body mass index (BMI) of 40.0 to 44.9 in adult, unspecified whether serious comorbidity present (HCC) Hypertension associated with diabetes (HCC) Screening for prostate cancer Elevated LFTs Type 2 diabetes mellitus with hyperglycemia, without long-term current use of insulin (HCC) ALBUMIN CREATININE RATIO, URINE Routine 05/26/2023 8:24 AM GEOGRAPHICAL HISTORIAN Need for influenza vaccination Type 2 diabetes mellitus with hyperlipidemia (HCC) Class 3 severe obesity due to excess calories with body mass index (BMI) of 40.0 to 44.9 in adult, unspecified whether serious comorbidity present (HCC) Hypertension associated with diabetes (HCC) PSA SCREEN Routine 05/26/2023 8:24 AM GEOGRAPHICAL HISTORIAN Need for influenza vaccination Type 2 diabetes mellitus with hyperlipidemia (HCC) Class 3 severe obesity due to excess calories with body mass index (BMI) of 40.0 to 44.9 in adult, unspecified whether serious comorbidity present (HCC) Hypertension associated with diabetes (HCC) Screening for prostate cancer COLONOSCOPY Routine 01/23/2023 DIABETES EYE EXAM Routine 12/08/2022 from Last 3 Months or Most Recently Relevant to Health Maintenance Results * eGFR (11/23/2023 2:55 PM CDT) eGFR >90 >=60 mL/min/1. 73 m2 Comment: Interpretive Data Reference Interval Normal >/= 90 mL/min/1.73m2 Mildly decreased* 60 - 89 mL/min/1.73m2 Mildly to moderately decreased 45 - 59 mL/min/1.73m2 Moderately to severely decreased 30 - 44 mL/min/1.73m2 Severely decreased 15 - 29 mL/min/1.73m2 Kidney Failure < 15 mL/min/1.73m2 *Relative to young adult level Estimated glomerular filtration rate is determined by the 2020 CKD-EPI equation recommended by the National Kidney Foundation (A Unifying Approach to GFR Estimation: Recommendations of the NKF-ASK Task Force on Reassessing the Inclusion of Race in Diagnosing Kidney Disease, JASN 2020). The CKD-EPI equation should not be used for patients with unstable renal function and has not been validated in children and those over 70. Current interpretive data was last reviewed 2021. Testing performed by: [facility], [address] [place] [address]., [id number] Blood 11/23/2023 2:55 PM CDT 11/23/2023 9:14 PM CDT Lani Linn NP LAB BLOOD ORDERABLES Final Result NITESH MICHAEL ([place]) 1 [facility] Department [place] [address] * (ABNORMAL) Hemoglobin A1c (11/23/2023 2:55 PM CDT) Hgb A1C 7.0(H) 4.0 - 5.6 % Comment:Testing performed by : [address] [address] Estimated Average Glucose 154 mg/dL NITESH MICHAEL ([place]) Comment: The ADA recommends reporting an estimated Average Glucose (eAG) with all Hemoglobin A1c results using the equation derived from a study of 507 normal and diabetic adults. Minority populations were underrepresented and children were not included. (Diabetes Care 31:3364-8752, 2008). The eAG is not equivalent to a fasting glucose. Testing performed by: [facility], [address] [place] [address]., [id number] Blood 11/23/2023 2:55 PM CDT 11/23/2023 9:10 PM CDT Lani Linn NP LAB BLOOD ORDERABLES Final Result NITESH MICHAEL ([place]) 1 [facility] Department [place] [address] * (ABNORMAL) Lipid panel (11/23/2023 2:55 PM CDT) Cholesterol 175 30 - 199 mg/dL Comment: Interpretive Data Ages < or = 19 years Acceptable: <170 mg/dL Borderline high: 170-199 mg/dL High: >or= 200 mg/dL Ages > or = 20 years Desirable: <200 mg/dL Borderline high: 200-239 mg/dL High: >or= 240 mg/dL Literature References: 1. Expert Panel on Integrated Guidelines for Cardiovascular Health and Risk Reduction in Children and Adolescents. Pediatrics 2011;128:S213 2. NCEP Expert Panel. Circulation 2004;110:227 Current Interpretive Data was last revised on 2017. Testing performed by: [facility], [address] [place] [address]., [id number] Triglycerides 203(H) <=149 mg/dL NITESH MICHAEL ([place]) Comment: Interpretive Data Ages < or = 9 years Acceptable: <75 mg/dL Borderline high: 75-99 mg/dL High: >or= 100 mg/dL Ages 10 to 20 years Acceptable: <90 mg/dL Borderline high: 90-129 mg/dL High: >or= 130 mg/dL Ages > or = 20 years Desirable: <150 mg/dL Borderline high: 150-199 mg/dL High: 200-499 mg/dL Very high: >or= 499 mg/dL Literature References: 1. Expert Panel on Integrated Guidelines for Cardiovascular Health and Risk Reduction in Children and Adolescents. Pediatrics 2011;128:S213 2. NCEP Expert Panel. Circulation 2004;110:227 Current Interpretive Data was last revised on 2017. Testing performed by: [facility], [address] [place] [address]., [id number] HDL 43 >=40 mg/dL NITESH MICHAEL ([place]) Comment: Interpretive Data Ages < or = 19 years Acceptable: >45 mg/dL Borderline low: 40-45 mg/dL Low: <40 mg/dL Ages > or = 20 years Desirable: >or= 60 mg/dL Low: <40 mg/dL Literature References: 1. Expert Panel on Integrated Guidelines for Cardiovascular Health and Risk Reduction in Children and Adolescents. Pediatrics 2011;128:S213 2. NCEP Expert Panel. Circulation 2004;110:227 Current Interpretive Data was last revised on 2017. Testing performed by: [address] [address] LDL, calculated 97 <=129 mg/dL NITESH MICHAEL ([place]) Comment: Interpretive Data Ages < or = 19 years Acceptable: <110 mg/dL Borderline high: 110-129 mg/dL High: >or= 130 mg/dL Ages > or = 20 years Optimal: <100 mg/dL Near optimal: 100-129 mg/dL Borderline high: 130-159 mg/dL High: >160 mg/dL Calculated using the Roni LDL-C estimating equation. This equation was implemented on 2023. Prior to this date LDL-C was estimated using the Friedewald equation. Literature References: 1. Expert Panel on Integrated Guidelines for Cardiovascular Health and Risk Reduction in Children and Adolescents. Pediatrics 2011;128:S213 2. NCEP Expert Panel. Circulation 2004;110:227 3. Roni Muller al. SHAN Cardiol. 2020 August 01;5(5):540-548. doi: 10.1001/[email or web address] Current Interpretive Data was last revised on 2023. Testing performed by: [address] [address] Non-HDL Cholesterol 132 mg/dL NITESH MICHAEL ([place]) Comment: Interpretive Data Ages < or = 19 years Acceptable: <120 mg/dL Borderline high: 120-144 mg/dL High: >145 mg/dL Ages > or = 20 years When triglycerides are >200 mg/dL, Non-HDL cholesterol is a secondary target of therapy with treatment goals that are 30 mg/dL greater than the LDL cholesterol target. Literature References: 1. Expert Panel on Integrated Guidelines for Cardiovascular Health and Risk Reduction in Children and Adolescents. Pediatrics 2011;128:S213 2. NCEP Expert Panel. Circulation 2004;110:227 Current Interpretive Data was last revised on 2017. Testing performed by: [facility], [address] [place] [address]., [address] Chol/HDL ratio 4 CHUCKIE MICHAEL ([place]) Comment:Testing performed by : [facility], [address] [place] [address]., [id number] Blood 11/23/2023 2:55 PM CDT 11/23/2023 9:10 PM CDT Lani Linn NP LAB BLOOD ORDERABLES Final Result Performing Organization Address City/[facility]/ZIP Co de Phone Number NITESH MICHAEL ([place]) 1 [facility] [place] [address] * PSA screen (05/26/2023 8:24 AM GEOGRAPHICAL HISTORIAN) PSA-Total 0.41 <=3.90 ng/mL NITESH MICHAEL ([place]) Comment: Interpretive Data AGE SEX REFERENCE INTERVAL 0 minutes-150 years Female None 0 minutes-49 years Male None 50-59 years Male 0-3.90 60-69 years Male 0-5.40 70-79 years Male 0-6.20 80-150 years Male 0-6.20 The Bautista PSA Total assay procedure was used. Results from different manufacturers or methods may not be comparable. Serial testing should be performed using the same method. Current interpretive data last revised 21. Testing performed by: [facility], [address] [place] [address], [place]., [address] Blood 05/26/2023 8:24 AM GEOGRAPHICAL HISTORIAN 05/26/2023 11:33 AM GEOGRAPHICAL HISTORIAN Lani Linn NP LAB BLOOD ORDERABLES Final Result NITESH MICHAEL ([place]) 1 [facility] [place] [address] * (ABNORMAL) Albumin Creatinine Ratio, Urine (05/26/2023 8:24 AM GEOGRAPHICAL HISTORIAN) Albumin Ur 159.8 mg/L [facility] AM H ([place]) Comment: Interpretive Data No reference range established. Current interpretive data was last revised 2018. Testing performed by: [facility], [address] [place] [address]., [id number] Creatinine Ur 175.7 mg/dL NITESH [facility] ([place]) Comment: Interpretive Data No reference range established. Current interpretive data was last revised 2018. Testing performed by: [facility], [address] [place] [address]., [id number] Albumin Creatinine Ratio, Ur 91(H) 1 - 29 mg/g NITESH MICHAEL ([place]) Comment:Testing performed by : [facility], [address] [place] [address]., [id number] Urine 05/26/2023 8:24 AM GEOGRAPHICAL HISTORIAN 05/26/2023 11:33 AM GEOGRAPHICAL HISTORIAN Lani Linn NP LAB URINE ORDERABLES Final Result NITESH [facility] ([place]) 1 [facility] [place] [address] * (ABNORMAL) COLONOSCOPY (01/23/2023) Scribed Colonoscopy Abnormal Comment:1 single polyp, othe rwise normal colonoscopy Historical Provider HEALTH MAINTENANCE Final Result * DIABETES EYE EXAM (12/08/2022) SCRIBED DIABETIC DILATED EYE EXAM Normal Historical Provider HEALTH MAINTENANCE Final Result from Last 3 Months or Most Recently Relevant to Health Maintenance Insurance [facility] [employer] Care Teams Hardware Test Engineer Relationship Specialty Start Date End Date No, Physician 03/24/22
== END 2024-12-26 07:55 | disposition home or self-care (01) ==
LOC: ANHBWCIMG 07:55
PROVIDERS: PCP Nurse Practitioner Adult Health; Visit Provider Nurse Practitioner Adult Health
DX: R10.9 Unspecified abdominal pain (principal); N20.0 Calculus of kidney
CPT/HCPCS: 74018